=== PATIENT | male | born 1995 | race Caucasian/White ===

== ENCOUNTER 2018-10-29 22:10 | Emergency (ER) | payer SELFPAY ==
[~2018-10-29] VITALS: Ht 185.4 cm; Wt 72.6 kg
[2018-10-29 22:33] VITALS: BP 109/73
== END 2018-10-29 23:47 | disposition home or self-care (01) ==
LOC: ER 22:19
DX: K64.9 Unspecified hemorrhoids (principal); K59.00 Constipation, unspecified